=== PATIENT | female | born 1965 | race Two or more races ===

== ENCOUNTER → 2018-01-26 | Outpatient (CLI) | payer OTHER | END | disposition home or self-care (01) | LOC: MAMMO 14:58 | DX: Z12.31 Encounter for screening mammogram for malignant neoplasm of breast (principal) | CPT/HCPCS: 77067 ==

== ENCOUNTER → 2018-06-02 | Outpatient (CLI) | payer OTHER | END | disposition home or self-care (01) | LOC: MAMMO 09:13 | DX: N63.20 Unspecified lump in the left breast, unspecified quadrant (principal) | CPT/HCPCS: 76641; 77065 ==

== ENCOUNTER → 2018-07-07 | Outpatient (CLI) | payer OTHER ==
[~2018-07-07] MED LIST: LIDOCAINE 1%/EPI 1:100,000 20 ML VIAL. INJ ONE
--- NOTE | 2018-07-11 15:09 | PATHOLOGY ---
[place] Accession Number: [id number] . 01 Material submitted: . LT BREAST TISSUE . 01 Clinical history: . Left breast biopsy/mass . 02 Diagnosis: Breast tissue, left breast mass needle biopsies: - Fibroadenoma. [facility]/07/11/2018 . 02 Comment: There is no evidence of malignancy. (JPM:[facility] 07/11/2018) . 02 Electronically signed: . Mj Hu MD, Pathologist NPI- [id number] . 01 Gross description: . The specimen is received in formalin, labeled "Alexa Cruz, left breast". Received are multiple needle cores of yellow-celestin fibrofatty tissue measuring 1.8 x 1.6 x 0.3 cm in aggregate dimensions. The specimen is submitted entirely in cassettes A1 through A3. The cold ischemic time is 3 minutes. The total formalin fixation time is 67 hours and 50 minutes. ([facility]; 07/10/2018) QAC/QAC . 02 Pathologist provided ICD-10: D24.2, N62 . 02 CPT . 130327 [facility]formed at: [facility] [address] [facility] [address], [place] [id number] MD Michael Rodriguez MD Phone: [phone] Performed at: 02 [facility] [address] [place], [place] [id number] MD Mj Hu MD Phone: [phone]
--- NOTE | 2018-07-13 14:38 | RAD ---
Ultrasound-guided left breast biopsy, 07/07/2018: History: Suspicious breast nodule Previous studies demonstrated a suspicious nodule at the 1:00 location in the left breast. Under local anesthesia, aseptic conditions and sonographic guidance the PT [place] [employer] [place] biopsy instrument was passed into the posterior aspect of this nodule via a lateral approach. Multiple 12-gauge vacuum-assisted core samples were obtained. A biopsy marker was then deposited at the biopsy site. The biopsy instrument was removed and hemostasis obtained. Two-view digital mammograms were then obtained to document position of the biopsy marker. The patient tolerated the procedure well and left the department in good condition. The subsequent pathology report indicated the presence of a fibroadenoma. This is considered to be a concordant finding. BI-RADS 2-benign findings
== END | disposition home or self-care (01) ==
LOC: US 13:18
PROVIDERS: ATTEND Surgery
DX: D24.2 Benign neoplasm of left breast (principal); Z88.0 Allergy status to penicillin
CPT/HCPCS: 19083; 77065; 88305; C1713; 19085; 76942